=== PATIENT | female | born 1950 | race Caucasian/White ===

== ENCOUNTER → 2017-05-10 | Outpatient (CLI) | payer OTHER | END | disposition home or self-care (01) | LOC: C.RDSM 11:15 | PROVIDERS: ATTEND Orthopaedic Surgery | DX: M79.604 Pain in right leg (principal) ==

== ENCOUNTER → 2017-09-10 | Outpatient (CLI) | payer OTHER, MEDICARE ==
[~2017-09-10] MED LIST: ACET-1256 PO; AMLO5TAB3 PO; ASPI-461 PO; B-COTAB18 PO; DICL75TA2 PO; RXC5 PO; TRAM-10 PO; VITAMIN E PO
== END | disposition home or self-care (01) ==
LOC: C.RDSM 12:48
PROVIDERS: ATTEND Orthopaedic Surgery
DX: Z01.818 Encounter for other preprocedural examination (principal); M25.561 Pain in right knee

== ENCOUNTER 2017-09-12 07:33 | Inpatient (IN) | payer OTHER, MEDICARE ==
[2017-08-15 10:26] VITALS: BMI 31.0
--- NOTE | 2017-08-22 10:52 | PAT Medication Instructions ---
Service Date Aug 22, 2017. Current Home Medication List Amlodipine (Norvasc), 10 MG PO QAM B-Complex Vitamins (Vitamin B Complex), 1 TAB PO PRN Tramadol (Ultram), 50 MG PO BID PRN for RN [Vitamin E], 1 TAB PO PRN Medication Instructions For Your Scheduled Surgery - Hold the following medications 2 weeks prior to surgery (last dose 08/28): [Vitamin E], 1 TAB PO PRN - Hold the following medications the morning of surgery: B-Complex Vitamins (Vitamin B Complex), 1 TAB PO PRN - Take the following medications the morning of surgery with a sip of water: Amlodipine (Norvasc), 10 MG PO QAM Tramadol (Ultram), 50 MG PO BID PRN (if needed, may be taken up to four hours before surgery) - Take the following medications as scheduled the night before surgery: B-Complex Vitamins (Vitamin B Complex), 1 TAB PO PRN Tramadol (Ultram), 50 MG PO BID PRN (if needed) If you have any questions please call us at [phone] or [phone] or [phone]
--- NOTE | 2017-08-22 12:13 | History and Physical ---
History & Physical Date of Service Aug 22, 2017. History & Physical CHIEF COMPLAINT: Right knee pain. HISTORY OF PRESENT ILLNESS: This 67-year-old female presents to clinic today for preoperative history and physical. The patient states that she developed an onset of significant right knee pain on 02/03/17. Since that time, she has had cortisone injections, viscosupplementation, and used oral nonsteroidals and had physical therapy with no relief of any of the pain. She states that pain is affecting her ability to ambulate. She denies any traumatic injury or numbness or tingling in the right lower extremity. She states she previously had a left total knee arthroplasty done approximately 3 years ago in [place], [place] and states that presentation was very similar. PAST SURGICAL HISTORY: Left total knee arthroplasty, right third finger distal phalanx amputation, bilateral bunionectomy. PAST MEDICAL HISTORY: Hypertension. ALLERGIES: The patient has no known drug allergies. FAMILY HISTORY: Positive for heart disease and cancer. CURRENT MEDICATIONS TAKEN: Amlodipine 10 mg tablet daily, amoxicillin 500 mg oral capsule 4 caps as indicated 1 hour prior to dental procedures, meloxicam 15 mg oral tablet 1 tab daily and tramadol 50 mg tablet 1 tab every 12 hours as needed for pain. SOCIAL HISTORY: The patient denies a history of smoking, alcohol or illicit drug use. PHYSICAL EXAMINATION: Skin: The patient's skin is normal in appearance with no open skin lesions or discharge. Eyes: Pupils are equal and reactive to light and accommodating. Extraocular movements are intact. Throat: Posterior oropharynx clear with absence of edema, erythema or exudate. Cardiovascular exam: The patient has a regular rate and rhythm with no murmurs or gallops appreciated. Lungs: Auscultation of lung chappell reveals clear breath sounds throughout, no wheezing, rales or rhonchi. Abdomen was mildly obese, nondistended, nontender with normoactive bowel sounds. Extremities: Right knee , the patient is able to extend 80 degrees and flex to 120 degrees. She has marked crepitation with active, passive range of motion, medial joint line tenderness when the knee is palpated in flexed position. Some mild atrophy of the right quadriceps musculature when compared to the left. There is visible varus deformity about the right knee joint and the patient does experience pain over the medial aspect of the knee when performing Samantha's test. Otherwise, there is no varus or valgus laxity, negative AP drawer sign, negative Keyana test. The patient's patella is able to be manipulated with audible crepitation. Her right calf is soft and supple, nontender to palpation. She is neurovascularly intact in the right lower extremity. Neurological exam: Cranial nerves 2 through 12 are intact. No motor or sensory deficit. Psychological/general exam: The patient is alert and oriented x3 with proper grooming and hygiene. DIAGNOSIS: Right knee osteoarthritis. PROCEDURE: Right total knee arthroplasty. PLAN: The patient is scheduled to undergo this procedure with Dr. Hank Mayberry at [facility] as an inpatient on 09/12/17. Risks and complications of the surgery such as infection, bleeding, pain, scarring, nerve, blood vessel damage, weakness, wound problems, stiffness, incomplete relief of symptoms, heart attack, stroke, , hardware failure or loosening, wear, fracture, blood clots and embolism were explained to the patient during her visit by Dr. Mckeon today. Informed consent to perform the procedure was obtained. We will also obtain preoperative medical clearance from the patient's primary care provider, Dr. Farris. We will also obtain a preop EKG , CBC with differential, complete metabolic panel, PT, INR, PTT, blood type and screen, urinalysis, urine culture, hemoglobin A1c and nasal swab for MRSA. The patient is scheduled for her preoperative anesthesia clearance examination this morning and states she will obtain the necessary testing at that time. The patient was also provided with an order for a walker. She states she gave her old one away from her knee surgery 3 years ago. The patient was educated about [facility] that are offered [facility] in regards to [facility] replacement. She was also reeducated about the use of antibiotics prior to dental procedures. She was given paperwork to obtain a handicap placard for her car to use for 6 months postoperatively. She states she will most likely go to a rehab facility for her physical therapy for the first week to 2 postop and then will continue in her home. She states that her daughter is a physical therapist and will come to her home daily to do her rehab. The patient was advised that she will be provided with prescriptions for an opioid analgesic, anti-inflammatory, extra strength Tylenol and aspirin upon discharge from the hospital. She will use the aspirin 2 tabs daily for 30 days postoperatively to prevent blood clots. Tylenol and diclofenac sodium will be used for pain relief and oxycodone will be used for breakthrough pain that she may experience postoperatively. The patient will be scheduled for postoperative followup visit with myself on 09/24/17 at 1:15 in the afternoon. The patient verbalized understanding of all information provided during today's visit. The patient thanks for the care that she has received and states if she has any additional questions or concerns that should arise prior to her procedure date, she will contact the clinic accordingly.
[2017-09-12] VITALS (7 sets, daily range): BP systolic 111–158; BP diastolic 70–89; PULSE 67–94; TEMP 36.4–36.7; O2SAT 94–98; Ht 160 cm; Wt 77.5 kg
[~2017-09-12] VITALS: Ht 160 cm; Wt 77.5 kg
[2017-09-12] MEDS: TRANEXAMIC ACID INJ 1,000 MG x 2 Bags IV SCH ×4 (06:30→10:30)
[~2017-09-12 07:33] MED LIST changes: -ACET-1256 PO; +ACETAMINOPHEN 500 MG TAB PO SCH; -ASPI-461 PO; +BUPIVACAINE 0.5 % 5 MG/1 ML PF 10ML VIAL ONE; +CEFAZOLIN 2000MG IV PUSH 15 ML IV SCH; +CeleBREX 200 MG CAP PO SCH; +DEXAMETHASONE 4 MG TAB PO SCH; -DICL75TA2 PO; +FAMOTIDINE 20 MG TAB PO SCH; +LACTATED RINGER'S 1000ML 1,000 ML IV SCH; +LACTATED RINGER'S 1000ML 500 ML IV SCH; +LACTATED RINGER'S 1000ML IV SCH; +ROPIVACAINE 0.5% 5 MG/ML 30 ML VIAL ONE; +ROPIVACAINE 5MG/ML 30 ML 150 MG, BUPIVACAINE 0.5% MPF INJ 30 ML, EpINEphrine HCL INJ 0.... INFIL SCH; -RXC5 PO; +SCOPOLAMINE 1.5 MG TDSY TD SCH; +TRAMADOL HCL 50 MG TAB PO SCH
[2017-09-12] MEDS ORDERED: PHENYLEPHRINE 100MCG/ML 5ML SYR IV PRN (08:45)
[2017-09-12] MEDS ORDERED: ONDANSETRON INJ 2 MG/ML 2 ML VIAL IV PRN ×2 (08:45→13:00)
[2017-09-12] MEDS ORDERED: ATROPINE SULFATE 0.1 MG/ML 5ML SYR IV PRN (08:45)
[2017-09-12] MEDS ORDERED: HYDROmorphone INJ 2 MG/ML SYR/VIAL IV PRN (08:45)
[2017-09-12] MEDS ORDERED: EpHEDrine SULFATE INJ 50 MG/ML AMP IV PRN (08:45)
[2017-09-12] MEDS ORDERED: MIDAZOLAM HCL 1 MG/ML 2ML VIAL ONE ×3 (09:41→11:08)
[2017-09-12] MEDS ORDERED: EpHEDrine SULFATE INJ 50 MG/ML AMP ONE (10:03)
[2017-09-12] MEDS ORDERED: ONDANSETRON INJ 2 MG/ML 2 ML VIAL ONE ×2 (10:03→11:58)
--- NOTE | 2017-09-12 10:12 | History & Physical Bridge Note ---
H&P Re-Evaluation Bridge Note: I have examined the patient, reviewed the History & Physical and in the interval since the performance of the History & Physical I have noted the following changes of clinical significance: Pre-op Urine culture showed Gardnerella, however patient not experiencing any urinary frequency, pain or burning. UA repeated today. Otherwise, No changes noted
[2017-09-12] MEDS ORDERED: ORTHO JOINT ANESTHETIC ONE (10:23)
[2017-09-12] MEDS ORDERED: POVIDONE-IODINE OP SOLN 30 ML BTL ONE (10:24)
[2017-09-12] MEDS ORDERED: PROPOFOL IV EMULSION 10 MG/ML 20 ML VIAL ONE (11:24)
[2017-09-12] MEDS ORDERED: DEXAMETHASONE SOD INJ 4 MG/ML VIAL ONE (11:58)
--- NOTE | 2017-09-12 12:38 | [facility] Post Operative Brief Note ---
Immediate Operative Summary Operative Date Sep 12, 2017. Pre-Operative Diagnosis Right knee osteoarthritis. Post-Operative Diagnosis Right knee osteoarthritis. Procedure(s) Performed Right Total Knee Arthroplasty Surgeon Dr. Mayberry Alterations Supervisor Surgeon(s) Martir Estrada PA-C Estimated Blood Loss 150 ml Findings Consistent with Post-Op Diagnosis Fluids (cc crystalloids) 1100 cc Specimens a. right knee bone and tissue Drains None Anesthesia Type Spinal MAC Complication(s) none Disposition Accompanied Pt To Recover: no Disposition: Recovery Room / PACU
[2017-09-12] MEDS ORDERED: OXYCODONE HCL IR 5 MG TAB (IMMEDIATE RELEASE) PO PRN (13:00)
[2017-09-12] MEDS ORDERED: BISACODYL 10 MG SUPP PR PRN (13:00)
[2017-09-12] MEDS ORDERED: METOCLOPRAMIDE HCL INJ 5 MG/ML 2 ML VIAL IV PRN (13:00)
[2017-09-12] MEDS ORDERED: ALUMINUM/MAGNESIUM/SIMETH (MAALOX MAX) 30 ML UDC PO PRN (13:00)
[2017-09-12] MEDS ORDERED: ACETAMINOPHEN 325 MG TAB PO PRN (13:00)
[2017-09-12] MEDS ORDERED: ACETAMINOPHEN IV 100 ML IV PRN (13:00)
[2017-09-12] MEDS ORDERED: DiphenhydrAMINE HCL 50 MG/ML VIAL IV PRN (13:00)
[2017-09-12] MEDS ORDERED: MAGNESIUM HYDROXIDE SUSP 30 ML UDC PO PRN (13:00)
--- NOTE | 2017-09-12 13:05 | [facility] Operative Report ---
Operative Report Operative Date Sep 12, 2017. Pre-Operative Diagnosis Right knee osteoarthritis. Post-Operative Diagnosis Right knee osteoarthritis. Procedure(s) Performed Right Total Knee Arthroplasty Surgeon Dr. Mayberry Rubber Liner Surgeon(s) Martir Estrada PA-C Estimated Blood Loss 150 ml Findings Right knee end-stage DJD Fluids 1100 cc Specimens a. right knee bone and tissue Drains None Anesthesia Type Spinal MAC Complication(s) none Disposition no Recovery Room / PACU Indications This 67-year-old white female presented to the office with complaints of intractable right knee pain. She had tried conservative care measures including activity modification, oral anti-inflammatories, and oral pain medications without lasting improvement. She elected to proceed with surgical intervention after being educated about potential risks and outcomes. Description of Procedure Patient was administered a spinal anesthetic and then taken to the operating room where she was given sedation. She was prepped and draped in usual sterile fashion. Please see Dr. Mayberry's operative report for specifics of the procedure. I was present for the entire case from initial patient positioning through final wound closure. Assistance was provided in tissue retraction, hemostasis, trial implant placement, final implant placement, and final wound closure. Patient was taken to the recovery room in satisfactory condition. I attest to the content of the Intraoperative Record and any orders documented therein. Any exceptions are noted below.
--- NOTE | 2017-09-12 13:37 | DIAGNOSTIC IMAGING REPORT ---
R KNEE 1 OR 2 VIEWS ROUTINE CLINICAL HISTORY: AP/LATERAL IN PACU RIGHT KNEE COMPARISON: None. DISCUSSION: Anatomic alignment post total right knee arthroplasty. Good contact between prosthetic and the Bone. Expected soft tissue postoperative change. IMPRESSION: Anatomic alignment post total right knee arthroplasty. The above report was generated using voice recognition software. It may contain grammatical, syntax or spelling errors. Electronically signed by: Huan Story M.D. 09/12/2017 1:35 PM Dictated Date/Time: 09/12/2017 1:35 PM
--- NOTE | 2017-09-12 13:57 | Anesthesiology Progress Note ---
Anesthesia Post Op Note Date & Time Sep 12, 2017 at 13:57 Vital Signs Pain Intensity: 0 Vital Signs Past 12 Hours Date Time Temp Pulse Resp B/P (MAP) Pulse Ox O2 Delivery O2 Flow Rate FiO2 09/12/17 13:42 36.4 81 16 140/76 (97) 97 Room Air 09/12/17 13:30 36.4 88 16 122/81 97 Nasal Cannula 2 09/12/17 13:20 89 20 131/78 97 Nasal Cannula 2 09/12/17 13:10 85 18 123/76 97 Nasal Cannula 2 09/12/17 13:00 101 21 113/73 96 Nasal Cannula 2 09/12/17 12:55 36.0 93 16 99 Nasal Cannula 2 09/12/17 08:20 36.7 67 20 158/89 98 Room Air Notes Mental Status: alert / awake / arousable, participated in evaluation Pt Amnestic to Procedure: Yes Nausea / Vomiting: adequately controlled Pain: adequately controlled Airway Patency, RR, SpO2: stable & adequate BP & HR: stable & adequate Hydration State: stable & adequate Anesthetic Complications: no major complications apparent
--- NOTE | 2017-09-12 14:42 | OPERATIVE REPORT ---
DATE OF OPERATION: 09/12/2017 PREOPERATIVE DIAGNOSIS: Right knee osteoarthritis. POSTOPERATIVE DIAGNOSIS: Right knee osteoarthritis. OPERATION PERFORMED: Right total knee arthroplasty. SURGEON: Hank Mayberry MD. FELT MACHINE MECHANIC: Martir Estrada. ESTIMATED BLOOD LOSS: 150 mL. IV FLUIDS: 1100 mL crystalloid. SPECIMENS: Bone and soft tissue. COMPLICATIONS: None. IMPLANTS: 1. DePuy Sigma posterior stabilized cemented size 3 right femur. 2. DePuy size 2.5 cemented, MBT rotating platform tibial tray. 3. A 10 mm thickness polyethylene insert to match the size V3 femur. 4. A 38 mm oval dome patella. INDICATIONS: Ms. Melton is a 67-year-old female who is status post a left total knee arthroplasty with a good result. She has right knee osteoarthritis that has been refractory to conservative management and is affecting her activities of daily living. I had a long discussion with her about the risks, benefits of surgery, alternatives to surgery and expected outcomes. After reviewing all these, she elected to proceed with surgery. All questions were answered. Informed consent was signed. OPERATIVE FINDINGS: Cemented right total knee arthroplasty was performed using a rotating platform component. Routine osteoarthritis was noted. DESCRIPTION OF PROCEDURE: The patient was identified in the preoperative holding area where her surgical site was marked. She was given a spinal anesthetic and then brought back to the main operating room where she was placed on the operating room table and intravenous sedation was administered. All bony prominences were padded. Perioperative antibiotics were administered. She was prepped and draped in the normal sterile fashion. Prior to incision, a multidisciplinary timeout was called. All in the room were in agreement. We began by performing an exam under anesthesia, which revealed her to have approximately 15-degree flexion contracture. The collateral ligaments were stable. The leg was then exsanguinated with an Esmarch bandage. Tourniquet was inflated to 250 mmHg. A 14 cm incision was made over the quadriceps tendon extending over the patella and ending 1 cm medial to the tibial tubercle. We dissected down through subcutaneous tissues to the level of the fascia. Full thickness flaps were raised above the fascia. We then made our arthrotomy just medial to the patellar tendon and carried this down onto the proximal tibia. The arthrotomy was extended proximally with curved Douglas scissors. Half the fat pad was excised. Synovitis in suprapatellar pouch was excised. The patella was then everted. It sized to a size 23. We then resected approximately 10 mm of bone down to a thickness of 13. We then sized to a 38 mm patella. This was drilled and the trial implant was placed. This came back as a 23 mm thickness which we were happy with. The trial button was removed. The patella was everted, the knee was flexed up and notch osteophytes were excised. The cruciate ligaments were then excised with cautery. The distal femoral cut was made at 5 degrees of valgus to resect 11 mm accounting for her flexion contracture. We then made our tibial cut measuring for 10 mm thickness off of the less involved lateral side. This was made without difficulty. We then checked our extension gap. She was slightly tight medially. We then resected some of the osteophytes along the proximal medial tibia and this along with slightly shaving down the bone medially for a saw cut corrected the extension gap. Knee was then flexed up. The tibia was sized to a 2.5 mm. The distal femur sized to a 3 mm. 4-in-1 cutting guide was then positioned after checking her epicondylar axis and Loup's line to ensure that we had appropriate rotation of the component. Our anterior and posterior cuts were then made as well as chamfer cuts while protecting our collateral ligaments. Next, the box cut was made. The femoral trial was then placed and it sat down nicely on our cut surfaces. We then resized the tibia. The polyethylene liner was placed and she was brought through a full range of motion with the liner in place, which we were very happy with. We then flexed the knee back up and prepared the tibia using a 2.5 mm tibial tray trial. At this point, the bony surfaces were irrigated with normal saline. Periarticular injection cocktail was injected into the posterior capsule, taking great care to avoid the neurovascular bundle and the peroneal nerve. We then mixed the cement on the back table. Once the cement was ready, we cemented the femur on first followed by the tibia. The excess cement was excised. The trial polyethylene liner was then placed and the knee was brought out into full extension while the cement cured. At this point, the tourniquet was let down at 57 minutes. The Betadine solution was used to irrigate out the knee. Meticulous hemostasis was achieved. Once the cement was cured, the knee was flexed back up after bringing through a full range of motion where she was stable to varus and valgus throughout. At this point, the real polyethylene liner for 10 mm thickness was opened up and was placed. We then began to close. The arthrotomy was closed with interrupted 0 Vicryl sutures around the patella and running #1 Ethibond for the quad and patellar tendons. The deep dermis was closed with a running 2-0 Quill. The skin was closed with subcuticular 3-0 Monocryl. Steri-Strips were applied followed by a Silverlon dressing. A compressive dressing was placed over the top of the Silverlon. Patient's IV sedation was lifted and she was transferred to recovery room in stable condition. POSTOPERATIVE COURSE: Patient will be admitted to the hospital overnight for pain control and monitoring. She will be on aspirin for DVT prophylaxis. She will be weightbearing as tolerated. We will plan on discharging her home tomorrow. I attest to the content of the Intraoperative Record and any orders documented therein. Any exception s are noted below.
[2017-09-12] MEDS: KETOROLAC TROMETHAMINE 15 MG/ML VIAL IV. PRN ×2 (16:14→22:21)
[2017-09-12] MEDS: CHECK SCOPOLAMINE PATCH PLACEMENT SCH (16:15)
[2017-09-12] MEDS: FERROUS GLUCONATE 324 MG TAB PO SCH (18:13)
[2017-09-12] MEDS ORDERED: TRANEXAMIC ACID INJ 1,000 MG in SODIUM CHLORIDE 0.9% 100ML 100 ML IV ONE (19:00)
[2017-09-12] MEDS: CEFAZOLIN IV 2,000 MG in SYRINGE 0 ML IV SCH (19:43)
[2017-09-12] MEDS: D5W AND 1/2NSS + 20MEQ KCL 1,000 ML IV SCH (19:43)
[2017-09-12] MEDS: DOCUSATE SODIUM 100 MG CAP PO SCH (21:11)
[2017-09-12] MEDS: ASPIRIN 81 MG ECTAB PO SCH (21:11)
[2017-09-13] MEDS: CHECK SCOPOLAMINE PATCH PLACEMENT SCH ×2 (00:10→07:57)
[2017-09-13 04:00] VITALS: BP 108/66; PULSE 72; TEMP 36.6; O2SAT 93
[2017-09-13] MEDS: CEFAZOLIN IV 2,000 MG in SYRINGE 0 ML IV SCH (04:06)
[2017-09-13 06:08] LABS: HEMOGLOBIN 10.7 g/dL (12.0-16.0); MEAN CELL VOLUME 87.1 fL (80-100); MEAN CORPUSCULAR HEMOGLOBIN 30.1 pg (25-34); MEAN CORPUSCULAR HGB CONC 34.5 g/dl (32-36); MEAN PLATELET VOLUME 9.7 fL (7.4-10.4); PLATELET COUNT 166 K/uL (130-400); RED CELL DISTRIBUTION WIDTH CV 12.8 % (11.5-14.5); RED CELL DISTRIBUTION WIDTH SD 40.9 fL (36.4-46.3); WHITE BLOOD COUNT 11.22 K/uL (4.8-10.8)
[2017-09-13 06:37] LABS: CALCIUM 8.8 mg/dl (8.5-10.1); CREATININE 0.73 mg/dl (0.60-1.20); POTASSIUM 4.1 mmol/L (3.5-5.1)
[2017-09-13] MEDS: D5W AND 1/2NSS + 20MEQ KCL 1,000 ML IV SCH (07:00)
[2017-09-13] MEDS ORDERED: DEXAMETHASONE INJ 10 MG in SYRINGE 0 ML IV ONE (07:30)
[2017-09-13 07:49] VITALS: BP 120/74; PULSE 62; TEMP 36.6; O2SAT 96
[2017-09-13] MEDS ORDERED: PANTOprazole SOD 40 MG TAB PO SCH (09:00)
[2017-09-13] MEDS ORDERED: AMLODIPINE BESYLATE 5 MG TAB PO SCH (09:00)
[2017-09-13] MEDS ORDERED: MULTIVITAMIN TAB PO SCH (09:00)
[2017-09-13] MEDS: FERROUS GLUCONATE 324 MG TAB PO SCH (09:01)
[2017-09-13] MEDS: DOCUSATE SODIUM 100 MG CAP PO SCH (09:01)
[2017-09-13] MEDS: ASPIRIN 81 MG ECTAB PO SCH (09:02)
[2017-09-13] MEDS ORDERED: NURSING VERBAL MED ORDER ONE (09:15)
--- NOTE | 2017-09-13 09:42 | Orthopedic Progress Note ---
Orthopedic Progress Note Date of Service Sep 13, 2017. Subjective Post OP Day: 1 (S/P Right Total Knee Replacement) Reports: feeling well, pain controlled w PO medications, Denies: complaints, chest pain, SOB, nausea / vomiting, light headedness, calf pain, using RN BUILDING Additional Notes: Tolerating regular diet. Drinking fluids. Objective calves soft nontender, N/V intact, capillary refill less than 2 sec., dressing C /D/I, incision C/D/I, A&O x3, toes mobile, CMS intact Immobilizer C/D/I Date Time Temp Pulse Resp B/P (MAP) Pulse Ox O2 Delivery O2 Flow Rate FiO2 09/13/17 08:00 Room Air 09/13/17 07:49 36.6 62 16 120/74 (89) 96 Room Air 09/13/17 04:00 36.6 72 16 108/66 (80) 93 Room Air 09/13/17 00:05 Room Air 09/12/17 22:55 36.5 75 16 120/70 (87) 96 Room Air 09/12/17 18:57 36.6 83 16 111/70 (84) 94 Room Air 09/12/17 15:57 36.6 94 16 151/75 (100) 97 Room Air 09/12/17 15:35 Room Air 09/12/17 14:37 92 18 146/74 (98) 97 Room Air 09/12/17 13:45 96 Room Air 09/12/17 13:42 36.4 81 16 140/76 (97) 97 Room Air 09/12/17 13:30 36.4 88 16 122/81 97 Nasal Cannula 2 09/12/17 13:20 89 20 131/78 97 Nasal Cannula 2 09/12/17 13:10 85 18 123/76 97 Nasal Cannula 2 09/12/17 13:00 101 21 113/73 96 Nasal Cannula 2 09/12/17 12:55 36.0 93 16 99 Nasal Cannula 2 Laboratory Results 24 Hours: Test 09/13/17 05:55 Hematocrit 31.0 % Hemoglobin 10.7 g/dL Assessment & Plan Assessment: Post Op Day 1 S/P Right Total Knee Replacement Plan: Doing Well Ready to be D/Cd Plan to go home today and start Outpatient Physical Therapy (script provided) Dtr will bring walker to her room upon D/C Physical Therapy will see patient before she leaves Patient to continue with knee immobilizer for 48hrs post-op Pt instructed on wound care Patient instructed on DVT prophylaxis (ASA 81mg BID x 30 days); Manny ORELLANA Patient instructed on D/C meds including Diclofenac Sodium, Tylenol, Oxy IR, ASA (scripts provided). Has ice pack for pain and swelling. Patient has f/u apppt scheduled with Dr Mayberry 2wks after surgery. Advised to call office in meantime if has further questions or concerns. Discharge Planning Discharge Planning: home Pain Management: PO Tylenol, Oxy IR DVT Prophylaxis: DORYS Hendrickson Therapy: Physical Therapy
[2017-09-13] MEDS ORDERED: ASPI-461 PO ×2 (10:01)
[2017-09-13] MEDS ORDERED: ACET-1256 PO ×2 (10:01)
[2017-09-13] MEDS ORDERED: RXC5 PO ×2 (10:01)
[2017-09-13] MEDS ORDERED: DICL75TA2 PO ×2 (10:01)
--- NOTE | 2017-09-13 10:11 | Discharge Instructions ---
Discharge Instructions Date of Service Sep 13, 2017. Admission Reason for Admission: Right Knee Osteoarthritis Discharge Discharge Diagnosis / Problem: Right Knee Osteoarthritis Discharge Goals Goal(s): Decrease discomfort, Improve function, Increase independence Activity Recommendations Activity Limitations: per Instructions/Follow-up section Lifting Limitations: until after follow-up appointment Exercise/Sports Limitations: until after follow-up appointment May Resume Sexual Activity: after follow-up appointment Shower/Bathe: may shower/bathe in 3 days, keep incision dry Driving or Machine Use: until after f/u. Typically 4wks. Need to be off pain medication and not using walker. Weightbearing Status: Right weightbearing (as tolerated) Right knee Immobilizer for 48hrs after surgery. Use walker to assist with ambulation. Gradually progress to cane with therapy as tolerated. . Instructions / Follow-Up Instructions / Follow-Up Post-operative Instructions Dear Patient and Family/Friends, Before you are discharged from the hospital, it is important to know what to expect when you get home after surgery. To that end, we have created this sheet of discharge instructions which covers many commonly asked questions. Make sure you go through this sheet in its entirety with your nurse before you are discharged. Please note that we will go over the specifics of your surgery and recovery when you return for your first post-operative visit. Sincerely, Dr. Mayberry Pain Expect to be in a fair amount of pain after surgery. Remember, our goal is not to eliminate your pain, but to make it tolerable. It is a good idea to stay ahead of your pain by taking the medications you were prescribed once you get home. Typically, the pain starts improving 3-7 days after surgery. You should start weaning off the narcotic pain medication (oxycodone, hydrocodone, hydromorphone, morphine) as soon as your pain improves. Please call our office if your pain is not adequately controlled. Ice Ice your operative site at least 5 times a day for 15-30 minutes at a time. Make sure you have a thin cloth between the ice or cooling unit and your skin to prevent montero bite. This is especially important if you received a nerve block. Continue icing your operative site for the first 5-7 days after surgery , then as needed. Diet/Nausea/Vomiting Start by drinking clear liquids and eating crackers. If you can tolerate this, then you may resume your normal diet. If you feel nauseated or vomit, take Zofran/ondansetron (if prescribed). Please call our office if you have intractable nausea or vomiting, or, if after hours, you may go to the Emergency Room for help. Constipation Constipation is a common side effect of narcotic pain medication. If you have not had a bowel movement within 2 days after surgery, we recommend purchasing an over the counter laxative such as Milk of Magnesia, Dulcolax, or Miralax from a local pharmacy, and taking it as instructed. Call our clinic if any questions. Slings and Braces If you were placed in a sling or brace, it must be worn at all times, including sleep. You may remove your sling or brace for physical therapy, home exercises , and showering. The length of time you will be in your brace and range of motion restrictions depends on what surgery you had; these details will be reviewed at your first post-operative appointment. Nerve block The anesthesia team sometimes places a nerve block to help with post-operative pain control. This results in significant numbness and inability to move the extremity. The nerve block usually wears off in 8-12 hours, but sometimes can last up to 24 hours. Please call our office if you are still unable to move your extremity after 24 hours, unless you received a pain pump to take home. Nerve blocks typically wear off quickly, so start taking pain medication as soon as you start feeling soreness near your surgical site. Weight bearing and Range of Motion. Do not bear any weight through your operative extremity immediately after surgery. If you had upper extremity surgery, do not lift anything with that arm. If you are in a knee brace, keep it locked in place until your follow-up. We will discuss your weight bearing, range of motion, and lifting restrictions in detail at your first post-operative appointment. Continuous Passive Motion (CPM) Machine If you were prescribed a CPM machine, it will start after your first post- operative appointment, at which time we will give you instructions on the range of motion settings and duration of treatment Physical therapy You will be given a prescription for physical therapy or occupational therapy at your first post-operative appointment. Typically, patients start therapy within 1 week of surgery Wound care and showering We will inspect your wound at your first post-operative visit, and may do a dressing change at that time. Most patients will be in a water-proof dressing that is removed 14 days after surgery. It is normal to see some dried blood on the dressing. Do not remove your dressing, paper strips or sutures yourself unless you are given permission. Showering is allowed the day after surgery. Do not scrub or remove any dressings. The wound should not be submerged underwater (i.e. in a bathtub or pool) until 4 weeks after surgery MAURIZIO stockings If you were given white stockings, these are to be worn at all times except to shower (on both legs) for the first 2 weeks after surgery. Driving You may not drive while taking narcotic pain medication or while in a cast, splint, sling or brace. You, the patient, need to make the final determination about when you are safe to drive, however, the earliest you may consider driving after surgery is below: Hand/Wrist/Elbow Surgery: 3 days Shoulder Surgery: 2 weeks Hip,/Knee/Ankle Surgery: 4 weeks Fracture repair: 6 weeks Return to Work Your return to work depends on what surgery was done and what type of work you do. Please bring any paperwork your employer needs completed to your first post -operative visit. Also, bring a description of your job duties, as this helps us to understand what risks you may face at work. Travel Avoid long distance travel (greater than 1 hour) in airplanes and cars for the first 6 weeks after surgery. If you must travel, you need to have a Doppler ultrasound done before you travel to rule out a blood clot in your legs. Follow-up-- APPOINTMENT WITH JASSI HUITRON PA-C ON 09-24-17 AT 1:15PM You should have a follow-up appointment already scheduled 1-2 days after surgery. If not, please contact our office to make this appointment before you leave the hospital. When to call the office It is normal to have swelling and bruising in the limb that was operated on. This will improve with time. It is also normal to have fevers for the first 2 days after surgery. Reasons you should call your doctor include: Uncontrolled pain; Nausea, vomiting, or constipation that does not improve with medication; Fevers over 101.5, chills, sweats; Drainage or bleeding from the wound; Foul odor; Spreading areas of redness; Any other concerns Current Hospital Diet Patient's current hospital diet: Regular Diet Discharge Diet Recommended Diet: Regular Diet Procedures Procedures Performed: Right Total Knee Arthroplasty Pending Studies Studies pending at discharge: no Laboratory Results Hemoglobin A1c Test 08/22/17 11:11 Range/Units Estimated Average Glucose 100 mg/dl Hemoglobin A1c 5.1 4.5-5.6 % Medical Emergencies . Who to Call and When: Medical Emergencies: If at any time you feel your situation is an emergency, please call 911 immediately. . Non-Emergent Contact Non-Emergency issues call your: Surgeon Call Non-Emergent contact if: temperature is above 101.5, your pain is not controlled, wound has increased drainage . "Provider Documentation" section prepared by Aarti Yung. . [place] Drug Monitoring Program Search Results: patient reviewed within database
[2017-09-13 10:36] VITALS: BP 120/74; PULSE 62; TEMP 36.6; O2SAT 96
--- NOTE | 2017-09-13 15:26 | Discharge Summary ---
Discharge Summary Date of Service Sep 13, 2017. Discharge Summary Admission Date: Sep 12, 2017 at 10:15 Discharge Date: Sep 13, 2017 Discharge Disposition: Home Principal Diagnosis: Right knee endstage degenerative joint disease Secondary Diagnoses/Problems: Hypertension Procedures: S/P Right total knee replacement Consultations: None Pending Studies/Follow-Up: Following up with [facility] on 09-24-17 with JASSI Anaya PA-C at 1:30pm Medication Reconciliation New Medications: Acetaminophen (Tylenol) 500 Mg Tab 2 TAB PO Q8H for 10 Days, #60 TAB 1 Refill Diclofenac Sodium (Voltaren) 75 Mg Tab 1 TAB PO BID for 30 Days, #60 TAB Aspirin (Aspirin) 81 Mg Tab 81 MG PO BID for 30 Days, #60 TAB Oxycodone HCl (Oxycodone HCl) 5 Mg Tab 5-10 MG PO Q4H PRN for Pain, #60 TAB 0 Refills Continued Medications: Amlodipine (Norvasc) 5 Mg Tab 10 MG PO QAM B-Complex Vitamins (Vitamin B Complex) 1 Tab Tab 1 TAB PO PRN Discontinued Medications: Tramadol (Ultram) 50 Mg Tab 50 MG PO BID PRN for RN, TAB [Vitamin E] () 1 TAB PO PRN Hospital Course 67 year old female underwent R TKR with Dr Mayberry on 09-12-17. Received pre and post-op Abx. Tolerated spinal anesthesia with adductor canal block. Surgery without complications. Post-op patient tolerated PO pain medication. Tolerated regular diet and drinking fluids. Did not receive PT day of surgery. Able to sleep throughout night without complaints. POD 1 was seen by PT and able to transfer and walk with walker and knee immobilizer. Patient felt ready to go home. Discharged to home with family. Will continue knee immobilizer for 48hrs post-op. Will continue with walker for ambulation. Plans to go directly to outpatient physical therapy. Script was provided. Aware of DVT prophylaxis with ASA 81mg BID x 30 days. Maurizio hose until f/u with office. Provided with scripts for tylenol, voltaren, oxy ir, and ASA. Aware of wound care. Will keep silverlon dressing on until f/u with office. May shower. Advised to call with questions or concerns. Total time spent on discharge = This includes examination of the patient, discharge planning, medication reconciliation, and communication with other providers. Discharge Instructions Post-operative Instructions Dear Patient and Family/Friends, Before you are discharged from the hospital, it is important to know what to expect when you get home after surgery. To that end, we have created this sheet of discharge instructions which covers many commonly asked questions. Make sure you go through this sheet in its entirety with your nurse before you are discharged. Please note that we will go over the specifics of your surgery and recovery when you return for your first post-operative visit. Sincerely, Dr. Mayberry Pain Expect to be in a fair amount of pain after surgery. Remember, our goal is not to eliminate your pain, but to make it tolerable. It is a good idea to stay ahead of your pain by taking the medications you were prescribed once you get home. Typically, the pain starts improving 3-7 days after surgery. You should start weaning off the narcotic pain medication (oxycodone, hydrocodone, hydromorphone, morphine) as soon as your pain improves. Please call our office if your pain is not adequately controlled. Ice Ice your operative site at least 5 times a day for 15-30 minutes at a time. Make sure you have a thin cloth between the ice or cooling unit and your skin to prevent montero bite. This is especially important if you received a nerve block. Continue icing your operative site for the first 5-7 days after surgery , then as needed. Diet/Nausea/Vomiting Start by drinking clear liquids and eating crackers. If you can tolerate this, then you may resume your normal diet. If you feel nauseated or vomit, take Zofran/ondansetron (if prescribed). Please call our office if you have intractable nausea or vomiting, or, if after hours, you may go to the Emergency Room for help. Constipation Constipation is a common side effect of narcotic pain medication. If you have not had a bowel movement within 2 days after surgery, we recommend purchasing an over the counter laxative such as Milk of Magnesia, Dulcolax, or Miralax from a local pharmacy, and taking it as instructed. Call our clinic if any questions. Slings and Braces If you were placed in a sling or brace, it must be worn at all times, including sleep. You may remove your sling or brace for physical therapy, home exercises , and showering. The length of time you will be in your brace and range of motion restrictions depends on what surgery you had; these details will be reviewed at your first post-operative appointment. Nerve block The anesthesia team sometimes places a nerve block to help with post-operative pain control. This results in significant numbness and inability to move the extremity. The nerve block usually wears off in 8-12 hours, but sometimes can last up to 24 hours. Please call our office if you are still unable to move your extremity after 24 hours, unless you received a pain pump to take home. Nerve blocks typically wear off quickly, so start taking pain medication as soon as you start feeling soreness near your surgical site. Weight bearing and Range of Motion. Do not bear any weight through your operative extremity immediately after surgery. If you had upper extremity surgery, do not lift anything with that arm. If you are in a knee brace, keep it locked in place until your follow-up. We will discuss your weight bearing, range of motion, and lifting restrictions in detail at your first post-operative appointment. Continuous Passive Motion (CPM) Machine If you were prescribed a CPM machine, it will start after your first post- operative appointment, at which time we will give you instructions on the range of motion settings and duration of treatment Physical therapy You will be given a prescription for physical therapy or occupational therapy at your first post-operative appointment. Typically, patients start therapy within 1 week of surgery Wound care and showering We will inspect your wound at your first post-operative visit, and may do a dressing change at that time. Most patients will be in a water-proof dressing that is removed 14 days after surgery. It is normal to see some dried blood on the dressing. Do not remove your dressing, paper strips or sutures yourself unless you are given permission. Showering is allowed the day after surgery. Do not scrub or remove any dressings. The wound should not be submerged underwater (i.e. in a bathtub or pool) until 4 weeks after surgery MAURIZIO stockings If you were given white stockings, these are to be worn at all times except to shower (on both legs) for the first 2 weeks after surgery. Driving You may not drive while taking narcotic pain medication or while in a cast, splint, sling or brace. You, the patient, need to make the final determination about when you are safe to drive, however, the earliest you may consider driving after surgery is below: Hand/Wrist/Elbow Surgery: 3 days Shoulder Surgery: 2 weeks Hip,/Knee/Ankle Surgery: 4 weeks Fracture repair: 6 weeks Return to Work Your return to work depends on what surgery was done and what type of work you do. Please bring any paperwork your employer needs completed to your first post -operative visit. Also, bring a description of your job duties, as this helps us to understand what risks you may face at work. Travel Avoid long distance travel (greater than 1 hour) in airplanes and cars for the first 6 weeks after surgery. If you must travel, you need to have a Doppler ultrasound done before you travel to rule out a blood clot in your legs. Follow-up You should have a follow-up appointment already scheduled 1-2 days after surgery. If not, please contact our office to make this appointment before you leave the hospital. When to call the office It is normal to have swelling and bruising in the limb that was operated on. This will improve with time. It is also normal to have fevers for the first 2 days after surgery. Reasons you should call your doctor include: Uncontrolled pain; Nausea, vomiting, or constipation that does not improve with medication; Fevers over 101.5, chills, sweats; Drainage or bleeding from the wound; Foul odor; Spreading areas of redness; Any other concerns
[2017-09-13] MEDS ORDERED: CeleBREX 200 MG CAP PO SCH (21:00)
== END 2017-09-13 12:02 | disposition home or self-care (01) | DRG 470 ==
LOC: C.ACU 07:33 → C.3E 10:15 → ENRESERV 13:17
PROVIDERS: ADMIT Orthopaedic Surgery; ATTEND Orthopaedic Surgery
PROC: 0SRC0J9 Replacement of Right Knee Joint with Synthetic Substitute, Cemented, Open Approach (ICD-10-PCS; principal; 2017-09-12 10:15)
DX: M17.11 Unilateral primary osteoarthritis, right knee (principal); R82.71 Bacteriuria; I10 Essential (primary) hypertension; Z79.899 Other long term (current) drug therapy; Z79.1 Long term (current) use of non-steroidal anti-inflammatories (NSAID); Z96.652 Presence of left artificial knee joint